=== PATIENT | male | born 1995 | race Two or more races ===

== ENCOUNTER 2022-12-11 09:26 | Emergency (ER) | payer MEDICAID, SELFPAY ==
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
[2022-12-11 09:43] VITALS: BP 120/81; BP 122/76; PULSE 108; PULSE 90; RESP 16; TEMP 36.8; O2SAT 96; O2SAT 98; BMI 22.2
[2022-12-11 10:00] VITALS: TEMP 36.8
[2022-12-11] MEDS: Acetaminophen 325 MG TABLET 975 MG PO (10:04)
[2022-12-11] MEDS: Lidocaine HCl 1 % 20 ML VIAL 5 ML INFILTRATI (10:12)
--- NOTE | 2022-12-11 10:39 | PC.NURSE ---
Provider administering sutures, [place] [employer] remains at bedside.
[2022-12-11 12:39] VITALS: BP 128/78; PULSE 64; RESP 14; TEMP 36.6; O2SAT 99
== END 2022-12-11 11:25 | disposition home or self-care (01) ==
PROVIDERS: Emergency Provider Emergency Medicine
DX: S61.214A Laceration without foreign body of right ring finger without damage to nail, initial encounter (principal); M79.641 Pain in right hand; W25.XXXA Contact with sharp glass, initial encounter; Y93.9 Activity, unspecified; Y92.810 Car as the place of occurrence of the external cause; Y99.9 Unspecified external cause status
CPT/HCPCS: 12001; 73130; 99284

== ENCOUNTER 2022-12-18 10:47 | Emergency (ER) | payer MEDICAID, SELFPAY ==
[2022-12-18 11:47] VITALS: BP 108/69; PULSE 50; RESP 20; TEMP 35.7; O2SAT 99; BMI 22.3
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
== END 2022-12-18 12:28 | disposition home or self-care (01) ==
LOC: HO.ED 12:05
PROVIDERS: Emergency Provider Emergency Medicine
DX: L03.113 Cellulitis of right upper limb (principal); Z48.02 Encounter for removal of sutures
CPT/HCPCS: 99282; 99283